=== PATIENT | female | born 1955 | race Caucasian/White ===

== ENCOUNTER 2018-04-11 09:34 | Observation (INO) ==
--- NOTE | 2018-04-11 10:15 | ED ---
HPI General Chief complaint: Skin/Abscess/Foreign Body Stated complaint: Medical Time Seen by Provider: 04/11/18 10:18 Source: patient Mode of arrival: ambulatory Limitations: no limitations History of Present Illness HPI narrative: Patient was bitten by her kitten 2 days ago, she was initiated on clindamycin and Bactrim 2 days ago right away, and despite this aggressive treatment her right first and second digit knuckle area of gotten really inflamed and swollen Related Data Home Medications Medication Instructions Recorded Confirmed paroxetine HCl [Paxil] 20 mg PO DAILY 04/11/18 04/11/18 Previous Rx's Medication Instructions Recorded clindamycin HCl 300 mg PO TID #6 cap 04/12/18 fluconazole [Diflucan] 150 mg PO Q3D #2 tab 04/12/18 ketorolac 10 mg PO Q6H PRN #16 tab 04/12/18 sulfamethoxazole-trimethoprim 1 tab PO BID #4 tab 04/12/18 [Bactrim DS] Allergies Allergy/AdvReac Type Severity Reaction Status Date / Time penicillin G Allergy Severe Rash Verified 04/11/18 09:38 strawberry AdvReac Severe RASH Verified 04/11/18 09:38 Review of Systems ROS: all other systems reviewed are negative PMFSH History History Provided By: Patient Medical History Medical History ACL (anterior cruciate ligament) tear (Acute) Depression (Acute) Ganglion cyst of dorsum of left wrist (Acute) Meniscal injury (Acute) Right knee injury (Acute) Surgical History Surgical History H/O left knee surgery (Acute) History of appendectomy (Acute) S/P ACL surgery (Acute) S/P appy (Acute) S/P rotator cuff repair (Acute) Social History Social History Substance History: No History of Abuse Second Hand Smoke Exposure: No Smoking Status: Former smoker Tobacco Type: Cigarettes Packs Per Day: 1 Cigarettes Per Day: 20.0 How Often Do You Have a Drink Containing Alcohol: Monthly or less Recent Travel in [place] within the Last 8 Weeks: No Recent Out of Country Travel within the Last 8 Weeks: No Exam Narrative Exam Narrative: GENERAL: Well-nourished, well-developed patient in no apparent distress. SKIN: Warm and dry. HEAD: Atraumatic. Normocephalic. EYES: Pupils equal and round. No scleral icterus. No injection or drainage. ENT: No nasal bleeding or discharge. Mucous membranes pink and moist. NECK: Trachea midline. No JVD. CARDIOVASCULAR: Regular rate and rhythm. no rubs or gallops RESPIRATORY: No accessory muscle use. Clear to auscultation. Breath sounds equal bilaterally. GASTROINTESTINAL: Abdomen soft, non-tender, nondistended. No rebound or guarding MUSCULOSKELETAL: Extremities without clubbing, cyanosis, or edema. No obvious deformities. Right second and third MCP region edema on the dorsal aspect, also edema on the palmar aspect as well as puncture bites noted not actively bleeding no streaking, on the palmar aspect of the right hand between first digit and second digit along the first web interspace, there is no involvement of hypo-thenar region. NEUROLOGICAL: Awake and alert. No obvious cranial nerve deficits. Motor grossly within normal limits. Five out of 5 muscle strength in the arms and legs. Normal speech. PSYCHIATRIC: Appropriate mood and affect; insight and judgment normal. Course Initial Documented Vital Signs Temperature 97.7 F 04/11/18 09:36 Pulse Rate 63 04/11/18 09:36 Respiratory Rate 16 04/11/18 09:36 Blood Pressure 158/66 H 04/11/18 09:36 Pulse Oximetry 97 04/11/18 09:36 Last Documented Vital Signs Temperature 98.2 F 04/12/18 12:00 Pulse Rate 62 04/12/18 12:00 Respiratory Rate 20 04/12/18 12:00 Blood Pressure 110/53 L 04/12/18 12:00 Pulse Oximetry 96 04/12/18 12:00 Medical Decision Making [facility] Narrative Medical decision making narrative: Due to the quick progression despite aggressive antibiotic use, the patient will be recommended to stay in the hospital for IV antibiotics and to hopefully avoid any necessary hand surgery. Medical Screen Exam Complete: Yes Emergency Medical Condition: Yes Differential Diagnosis Differential Diagnosis: Cellulitis versus lymphangitis versus abscess Lab Data Result diagrams: 04/11/18 10:40 04/11/18 10:40 Lab Results 04/11/18 04/11/18 04/11/18 Range/Units 10:40 10:40 10:45 WBC 5.8 (4.0-11.0) th/mm3 RBC 4.67 (4.00-5.30) mil/mm3 Hgb 14.4 (11.6-15.3) gm/dL Hct 42.9 (35.0-46.0) % MCV 91.7 (80.0-100.0) fL MCH 30.8 (27.0-34.0) pg MCHC 33.6 (32.0-36.0) % RDW 12.7 (11.6-17.2) % Plt Count 195 (150-450) th/mm3 MPV 7.8 (7.0-11.0) fL Neut % (Auto) 60.5 (16.0-70.0) % Lymph % (Auto) 31.0 (9.0-44.0) % [place] % (Auto) 6.3 (0.0-8.0) % Eos % (Auto) 1.5 (0.0-4.0) % Baso % (Auto) 0.7 (0.0-2.0) % Neut # (Auto) 3.5 (1.8-7.7) th/mm3 Lymph # (Auto) 1.8 (1.0-4.8) th/mm3 [place] # (Auto) 0.4 (0.0-0.9) th/mm3 Eos # (Auto) 0.1 (0.0-0.4) th/mm3 Baso # (Auto) 0.0 (0.0-0.2) th/mm3 WBC Differential . Differential Comment Auto diff final Sodium 141 (136-145) meq/L Potassium 4.2 (3.5-5.1) meq/L Chloride 108 H (98-107) meq/L Carbon Dioxide 24.3 (21.0-32.0) meq/L Anion Gap 9 (5-15) meq/L BUN 19 H (7-18) mg/dL Creatinine 0.72 (0.50-1.00) mg/dL Estimated GFR 82 L (>89) mL/min Random Glucose 92 (74-106) mg/dL Lactic Acid 0.6 (0.4-2.0) mmol/L Calcium 8.7 (8.5-10.1) mg/dL Total Bilirubin 0.5 (0.2-1.0) mg/dL AST 18 (15-37) U/L ALT 25 (10-53) U/L Alkaline Phosphatase 75 (45-117) U/L Total Protein 6.8 (6.4-8.2) g/dL Albumin 3.7 (3.4-5.0) g/dL Imaging Data Radiologist's impression: Hand X-Ray 04/11/18 10:24 CONCLUSION: Mild soft tissue swelling as above. No acute fracture or retained foreign body identified. Discharge Plan Discharge Disposition Patient Disposition: 01 Discharge Home Discharge Condition Condition: Stable Discharge Order Discharge Orders: Discharge Order (Routine); Ordered 04/12/18 Ordered By: Ranulof Ledezma Discharge Details Diagnosis: Cat bite of hand, Cellulitis of hand, right Physicians Team ED Provider: He Mars Primary Care Provider: Jose Pacheco Attending Provider: Sherif Garcia Discharge Interventions Interventions: ED Discharge Assessment Last Done: 04/11/18 15:43 Vital Signs Last Done: 04/11/18 14:00 Status ED Status: Left Department Discharge Information Discharge Date/Time: 04/11/18 15:43
[2018-04-11] MEDS ORDERED: Vancomycin Inj 1,000 MG in Sodium Chlor 0.9% Inj 250 ML IV.SIG STA (10:18)
[2018-04-11] MEDS ORDERED: Aztreonam Inj 2 GM in Sodium Chloride 0.9% Inj 100 ML IV.SIG STA (10:18)
--- NOTE | 2018-04-11 10:56 | XR ---
EXAM DATE: 04/11/2018 10:52 AM EDT AGE/SEX: 62 years / Female INDICATIONS: Right hand pain and redness at MCP 2nd and 3rd digits after multiple cat bites. CLINICAL DATA: This is the patient's initial encounter. Patient reports that signs and symptoms have been present for 2 days and indicates a pain score of 4/10. MEDICAL/SURGICAL HISTORY: None. None. COMPARISON: No prior exams available for comparison. FINDINGS: Bony structures are intact and in normal alignment. Osseous density is normal. Soft tissues demonstr ate mild swelling of the thenar eminence and at the base of the second digit.. No radiopaque foreign bodies seen. CONCLUSION: Mild soft tissue swelling as above. No acute fracture or retained foreign body identified. Electronically signed by: Romeo Jordan MD 04/11/2018 10:54 AM EDT
[2018-04-11 11:19] LABS: Baso % (Auto) 0.7 % (0.0-2.0); Eos # (Auto) 0.1 th/mm3 (0.0-0.4); Eos % (Auto) 1.5 % (0.0-4.0); Hematocrit 42.9 % (35.0-46.0); Hemoglobin 14.4 gm/dL (11.6-15.3); Lymph # (Auto) 1.8 th/mm3 (1.0-4.8); Mean Corpuscular HGB Conc 33.6 % (32.0-36.0); Mean Corpuscular Hemoglobin 30.8 pg (27.0-34.0); Mean Corpuscular Volume 91.7 fL (80.0-100.0); Mean Platelet Volume 7.8 fL (7.0-11.0); Mono # (Auto) 0.4 th/mm3 (0.0-0.9); Mono % (Auto) 6.3 % (0.0-8.0); Neut # (Auto) 3.5 th/mm3 (1.8-7.7); Neut % (Auto) 60.5 % (16.0-70.0); Platelet Count 195 th/mm3 (150-450); Red Blood Count 4.67 mil/mm3 (4.00-5.30); Red Cell Distribution Width 12.7 % (11.6-17.2); White Blood Count 5.8 th/mm3 (4.0-11.0)
[2018-04-11 11:40] LABS: Albumin 3.7 g/dL (3.4-5.0); Anion Gap 9 meq/L (5-15); Aspartate Aminotransferase 18 U/L (15-37); Blood Urea Nitrogen 19 mg/dL (7-18); Calcium 8.7 mg/dL (8.5-10.1); Carbon Dioxide 24.3 meq/L (21.0-32.0); Chloride 108 meq/L (98-107); Glomerular Filtration Rate 82 mL/min (>89); Glucose,Random 92 mg/dL (74-106); Potassium 4.2 meq/L (3.5-5.1); Sodium 141 meq/L (136-145)
[2018-04-11 11:41] LABS: Alanine Aminotransferase 25 U/L (10-53)
[2018-04-11 11:44] LABS: Alkaline Phosphatase 75 U/L (45-117); Total Protein 6.8 g/dL (6.4-8.2)
[2018-04-11] MEDS ORDERED: Tetanus/Diphtheria Toxoid Adult Vaccine Inj 0.5 ML Vial IM ONE (12:17)
[2018-04-11] MEDS ORDERED: [UNRECOGNIZED DRUG - OTHER] IM ONE (12:17)
[2018-04-11] MEDS ORDERED: Bisacodyl 10 MG Supp RECTAL PRN (12:36)
[2018-04-11] MEDS ORDERED: Temazepam 15 MG Capsule PO PRN (12:36)
[2018-04-11] MEDS ORDERED: Acetaminophen 325 MG Tablet PO PRN ×2 (12:43→14:15)
--- NOTE | 2018-04-11 13:12 | P.HPFP ---
History of Present Illness Primary Care Physician: Jose Pacheco MD Chief Complaint: Right hand swelling from cat bite History of Present Illness: 62-year-old female with no past medical history presents for cat bite of right hand with swelling. She was bitten by the cat on the . It is a 2- week-old kitten. She had pain, swelling, redness, and warmth to touch of the hand. The swelling continued so she went to see her primary doctor Jay. He put her on clindamycin 300 mg every 6 hours and Bactrim every 12 hours. She took the medication starting yesterday and took it this morning. Since taking the medication she had experienced some nausea. No diarrhea. No fevers. The swelling continued and so she presented to the ED. Her pain has been minimal and controlled with Tylenol once yesterday. She has never injured this hand before. Her cat and has not been exposed to other animals as far she knows. The cat has not received rabies vaccine yet. The cat has not been acting abnormal just got startled in the dark. She is able to move her hand with full range of motion and denies any numbness or tingling. Patient is unsure of her last tetanus shot. She lives at home with her and has 9 cats total. - Diagnosis (1) Localized swelling on right hand Review of Systems Constitutional: Denies chills, Denies fever(s) Cardiovascular: Denies chest pain Respiratory: Denies shortness of breath Gastrointestinal: Reports nausea, Denies abdominal pain, Denies vomiting Genitourinary: Denies painful urination Musculoskeletal: Denies numbness, Denies tingling Skin/Breast: Denies unusual bruising Neurologic: Denies headache(s) Psychiatric: Denies change in appetite Hematologic/Lymphatic: Denies easy bleeding PMFSH - History History Provided By: Patient - Medical History Medical History: Medical History (Last Updated 04/11/18 @ 12:58 by Rhiannon Tripp MD, R1) ACL (anterior cruciate ligament) tear Depression Meniscal injury Right knee injury - Surgical History Surgical History: Surgical History (Last Updated 04/11/18 @ 12:58 by Rhiannon Tripp MD, R1) H/O left knee surgery History of surgical removal of ganglion cyst S/P ACL surgery S/P appy S/P rotator cuff repair - Tobacco History Smoking Status: Former smoker Tobacco Type: Cigarettes Packs Per Day: 1 - Alcohol History How Often Do You Have a Drink Containing Alcohol: Monthly or less - Substance Use History Substance History: No History of Abuse - Travel History Recent Travel in the [place] Within the Last 8 Weeks: No Recent Travel Out of the Country Within the Last 8 Weeks: No - Immunization History Tetanus Immunization: <5 Years Hx Influenza Vaccine This Season: Yes Medications and Allergies Active Medications: Active Medications Acetaminophen (Tylenol) 325 mg PO Q4H PRN PRN Reason: PAIN 1-10 AND/OR FEVER >101F Al Hydroxide/Mg Hydroxide (Milk Of Magnesia Liq) 30 ml PO Q12H PRN PRN Reason: Mild Constipation Bisacodyl (Dulcolax Supp) 10 mg RECTAL DAILY PRN PRN Reason: SEVERE CONSITIPATION Ceftriaxone Sodium 1,000 mg/ (Sodium Chloride) 100 mls @ 200 mls/hr IV.SIG Q12H BOB Clindamycin/Sodium Chloride (Cleocin 600 Mg/Ns Premix) 600 mg in 50 mls @ 100 mls/hr IV.SIG Q6H BOB Ondansetron HCl (Zofran Odt) 4 mg PO Q6H PRN PRN Reason: MILD NAUSEA Paroxetine HCl (Paxil) 20 mg PO DAILY BOB Senna/Docusate Sodium (Lauren-Colace) 1 tab PO BID BOB Sennosides (Senokot) 17.2 mg PO Q12H PRN PRN Reason: Moderate Constipation Temazepam (Restoril) 15 mg PO HS PRN PRN Reason: INSOMNIA Allergies Allergy/AdvReac Type Severity Reaction Status Date / Time penicillin G Allergy Severe Rash Verified 04/11/18 09:38 strawberry AdvReac Severe RASH Verified 04/11/18 09:38 Home Medications Medication Instructions Recorded Confirmed Type paroxetine HCl [Paxil] 20 mg PO DAILY 04/11/18 04/11/18 History Exam Vital signs: Vital Signs 04/11/18 09:36 Temperature 97.7 F Pulse Rate 63 Respiratory Rate 16 Blood Pressure 158/66 H Pulse Oximetry 97 Intake & Output 04/10/18 04/11/18 04/11/18 18:59 06:59 18:59 Weight 74.843 kg - Constitutional no acute distress - Routine HEENT Exam Head: Present: normocephalic, atraumatic - Routine Neck Exam Present: supple, full ROM - Detailed Respiratory Exam bilateral Present: clear to auscultation. Absent: rales, rhonchi, wheezes - Routine Cardiovascular Exam Present: RRR, S1, S2. Absent: murmur - Routine Abdominal Exam Present: soft. Absent: tenderness, distended - Detailed Upper Extremity Exam Comments: Left hand swelling especially over the thenar palm and dorsum of hand into the first and second digits. Erythematous and slightly warm to touch. Swelling does not extend into wrist. Full range of motion. Tenderness to palpation, ROM , and with strength exercises. Sensation intact. 4 out of 5 graduate rn strength and abduction compared to 5 out of 5 strength of right hand. Puncture wound between thumb and first digit. Small laceration on left forearm no surrounding erythema. - Routine Neurological Exam Present: oriented X3 Results - Labs Result diagrams: 04/11/18 10:40 04/11/18 10:40 Abnormal lab results 04/11/18 Range/Units 10:40 Chloride 108 H (98-107) meq/L BUN 19 H (7-18) mg/dL Estimated GFR 82 L (>89) mL/min Short CBC 04/11/18 Range/Units 10:40 WBC 5.8 (4.0-11.0) th/mm3 Hgb 14.4 (11.6-15.3) gm/dL Hct 42.9 (35.0-46.0) % Plt Count 195 (150-450) th/mm3 BMP 04/11/18 10:40 Sodium 141 Potassium 4.2 Chloride 108 H Carbon Dioxide 24.3 BUN 19 H Creatinine 0.72 Calcium 8.7 Liver Function 04/11/18 Range/Units 10:40 Total Bilirubin 0.5 (0.2-1.0) mg/dL AST 18 (15-37) U/L ALT 25 (10-53) U/L Alkaline Phosphatase 75 (45-117) U/L Albumin 3.7 (3.4-5.0) g/dL - Imaging Impressions Hand X-Ray 04/11/18 10:24 CONCLUSION: Mild soft tissue swelling as above. No acute fracture or retained foreign body identified. Caprini VTE Risk Assessment Caprini VTE Risk Assessment: No/Low Risk (score <= 1) Caprini Risk Assessment Model: Point Value = 1 Point Value = 2 Point Value = 3 Point Value = 5 Age 41-60 Minor surgery BMI > 25 kg/m2 Swollen legs Varicose veins or History of unexplained or recurrent spontaneous Oral contraceptives or hormone replacement Sepsis (< 1 month) Serious lung disease, including pneumonia (< 1 month) Abnormal pulmonary function Acute myocardial infarction Congestive heart failure (< 1 month) History of inflammatory bowel disease Medical patient at bed rest Age 61-74 Arthroscopic surgery Major open surgery (> 45 min) Laparoscopic surgery (> 45 min) Malignancy Confined to bed (> 72 hours) Immobilizing plaster cast Central venous access Age >= 75 History of VTE Family history of VTE Factor V Leiden Prothrombin [id number] Lupus anticoagulant Anticardiolipin antibodies Elevated serum homocysteine Heparin-induced thrombocytopenia Other congenital or acquired thrombophilia Stroke (< 1 month) Elective arthroplasty Hip, pelvis, or leg fracture Acute spinal cord injury (< 1 month) Prophylaxis Regimen: Total Risk Factor Score Risk Level Prophylaxis Regimen 0-1 Low Early ambulation 2 Moderate Order ONE of the following: *Sequential Compression Device (SCD) *Heparin 5000 units SQ BID 3-4 Higher Order ONE of the following medications: *Heparin 5000 units SQ TID *Enoxaparin/Lovenox 40 mg SQ daily (WT < 150 kg, CrCl > 30 mL/min) *Enoxaparin/Lovenox 30 mg SQ daily (WT < 150 kg, CrCl > 10-29 mL/min) *Enoxaparin/Lovenox 30 mg SQ BID (WT < 150 kg, CrCl > 30 mL/min) AND/OR *Sequential Compression Device (SCD) 5 or more Highest Order ONE of the following medications: *Heparin 5000 units SQ TID (Preferred with Epidurals) *Enoxaparin/Lovenox 40 mg SQ daily (WT < 150 kg, CrCl > 30 mL/min) *Enoxaparin/Lovenox 30 mg SQ daily (WT < 150 kg, CrCl > 10-29 mL/min) *Enoxaparin/Lovenox 30 mg SQ BID (WT < 150 kg, CrCl > 30 mL/min) AND *Sequential Compression Device (SCD) Assessment and Plan - Assessment (1) Localized swelling on right hand Code(s): R22.31 - Localized swelling, mass and lump, right upper limb Status: Acute Plan: 62-year-old female presents after cat bite to right hand with swelling and erythema. Initiated outpatient management cellulitis treatment with Bactrim and clindamycin with no improvement. DDX cellulitis, tendon synovitis, osteomyelitis. In ED given aztreonam. Low suspicion for tendon synovitis given no specific tenderness over the course of the flexor sheath and no flexion of the fingers at rest. Most likely cellulitis. -Admit to observation for IV antibiotics -R hand x-ray: Bony structures are intact and in normal alignment. Osseous density is normal. Soft tissues demonstrate mild swelling of the thenar eminence and at the base of the second digit.. No radiopaque foreign bodies seen. -tetanus -initial rabies tx -Tylenol alternate with Tramadol as needed for pain -Zofran as needed nausea -Clindamycin IV 600 every 6 hours and ceftriaxone 1 g every 12 hours -BCX -home paxil
[2018-04-11] MEDS ORDERED: [UNRECOGNIZED DRUG - OTHER] IM ONE (13:30)
[2018-04-11] MEDS ORDERED: Ketorolac 10 MG Tablet PO PRN (13:38)
[2018-04-11] MEDS: Clindamycin 600 mg/NS Premix 600 MG/50 ML PIGGYBACK IV.SIG SCH ×2 (16:44→17:47)
--- NOTE | 2018-04-11 20:03 | P.PNFP ---
Subjective Interval history: Attending note: Very pleasant 62-year-old employee of [employer] with an unremarkable past medical history presents with a history of 2 days ago of having bitten by a kitten that she had obtained from a local retail store. The bite occurred while she was playing with a kitchen and thought that the kitten "startled". Bit her on the medial aspect of the right hand between the first and second digit dorsally. Patient consulted a hospital physician who recommended oral clindamycin and Bactrim which was started promptly however patient has had increased redness and swelling some discomfort on flexion and extension of the right hand. Patient has received tetanus immunization as well as a rabies injection. Resting comfortably. Please refer to the resident history and physical for complete discussion of past medical history, family history, social history and review of systems. Results - Labs Result diagrams: 04/11/18 10:40 04/11/18 10:40 Abnormal lab results 04/11/18 Range/Units 10:40 Chloride 108 H (98-107) meq/L BUN 19 H (7-18) mg/dL Estimated GFR 82 L (>89) mL/min Short CBC 04/11/18 Range/Units 10:40 WBC 5.8 (4.0-11.0) th/mm3 Hgb 14.4 (11.6-15.3) gm/dL Hct 42.9 (35.0-46.0) % Plt Count 195 (150-450) th/mm3 BMP 04/11/18 10:40 Sodium 141 Potassium 4.2 Chloride 108 H Carbon Dioxide 24.3 BUN 19 H Creatinine 0.72 Calcium 8.7 Liver Function 04/11/18 Range/Units 10:40 Total Bilirubin 0.5 (0.2-1.0) mg/dL AST 18 (15-37) U/L ALT 25 (10-53) U/L Alkaline Phosphatase 75 (45-117) U/L Albumin 3.7 (3.4-5.0) g/dL - Imaging Impressions Hand X-Ray 04/11/18 10:24 CONCLUSION: Mild soft tissue swelling as above. No acute fracture or retained foreign body identified. Physical Exam Vital signs: Vital Signs 04/11/18 09:36 04/11/18 13:42 04/11/18 14:00 Temperature 97.7 F Pulse Rate 63 57 L Respiratory Rate 16 17 53 H Blood Pressure 158/66 H 121/61 Pulse Oximetry 97 100 04/11/18 15:47 Temperature 97.9 F Pulse Rate 54 L Respiratory Rate 20 Blood Pressure 134/61 Pulse Oximetry 97 Intake & Output 04/11/18 04/11/18 04/12/18 06:59 18:59 06:59 Intake Total 450 / 450 Balance 450 / 450 Weight 76.6 kg Intake: IV 450 / 450 Vancomycin Inj 1,000 MG In NS 250 / 250 Inj 250 ML @ 250 mls/hr IV.SIG STAT STA Rx#:[id number] Rocephin Inj 1,000 MG In NS Inj 100 / 100 100 ML @ 200 mls/hr IV.SIG Q12H BOB Rx#:[id number] Other: Weight On Admission 76.6 kg Narrative: Vital signs stable. Afebrile. General appearance: Very healthy middle-aged woman who is conversive, accompanied by visitors and in no acute distress. Pertinent examination: Right upper extremity, no tenderness in the axilla, epitrochlear area, no lymphangitic streaks. There is soft tissue swelling and the area of a wound that is erythematous and the right medial dorsal webspace between the thumb and index finger. There is associated soft tissue swelling dorsally. Patient able to flex and extend her digits. Limited by the swelling. Assessment and Plan - Assessment (1) Localized swelling on right hand Code(s): R22.31 - Localized swelling, mass and lump, right upper limb Status: Acute Plan: 62-year-old female presents after cat bite to right hand with swelling and erythema. Initiated outpatient management cellulitis treatment with Bactrim and clindamycin with no improvement. DDX cellulitis, tendon synovitis, osteomyelitis. In ED given aztreonam. Low suspicion for tendon synovitis given no specific tenderness over the course of the flexor sheath and no flexion of the fingers at rest. Most likely cellulitis. -Admit to observation for IV antibiotics -R hand x-ray: Bony structures are intact and in normal alignment. Osseous density is normal. Soft tissues demonstrate mild swelling of the thenar eminence and at the base of the second digit.. No radiopaque foreign bodies seen. -tetanus -initial rabies tx -Tylenol alternate with Tramadol as needed for pain -Zofran as needed nausea -Clindamycin IV 600 every 6 hours and ceftriaxone 1 g every 12 hours -BCX -home paxil - Assessment and Plan Clinical assessment kitten bite and a very healthy person, currently on IV antibiotics and because the cat was not old enough to receive rabies vaccine a prophylactic rabies regimen has started. Tetanus immunization. Antibiotics as ordered by the resident team. Agree with resident evaluation and orders as recorded. Sherif Garcia MD 04/11/2018.
[2018-04-11] MEDS: Senna/Docusate Sodium 8.6/50 MG Tablet PO SCH (22:01)
[2018-04-12] MEDS: Clindamycin 600 mg/NS Premix 600 MG/50 ML PIGGYBACK IV.SIG SCH ×3 (00:32→12:52)
[2018-04-12] MEDS: Senna/Docusate Sodium 8.6/50 MG Tablet PO SCH (08:39)
--- NOTE | 2018-04-12 10:23 | P.PNFP ---
Subjective Interval history: Patient was seen and examined this morning. She is feeling much better this morning. Her hand swelling has improved. She denies fevers, chills, nausea, vomiting, headaches, chest pain, shortness of breath, abdominal pain, lower extremity edema. <Hermelinda Fang - 04/12/18 11:20> Results - Labs Result diagrams: 04/11/18 10:40 04/11/18 10:40 <Sherif Garcia - 04/12/18 15:19> Abnormal lab results 04/11/18 Range/Units 10:40 Chloride 108 H (98-107) meq/L BUN 19 H (7-18) mg/dL Estimated GFR 82 L (>89) mL/min Short CBC 04/11/18 Range/Units 10:40 WBC 5.8 (4.0-11.0) th/mm3 Hgb 14.4 (11.6-15.3) gm/dL Hct 42.9 (35.0-46.0) % Plt Count 195 (150-450) th/mm3 BMP 04/11/18 10:40 Sodium 141 Potassium 4.2 Chloride 108 H Carbon Dioxide 24.3 BUN 19 H Creatinine 0.72 Calcium 8.7 Liver Function 04/11/18 Range/Units 10:40 Total Bilirubin 0.5 (0.2-1.0) mg/dL AST 18 (15-37) U/L ALT 25 (10-53) U/L Alkaline Phosphatase 75 (45-117) U/L Albumin 3.7 (3.4-5.0) g/dL <Hermelinda Fang - 04/12/18 10:23> - Imaging Impressions Hand X-Ray 04/11/18 10:24 CONCLUSION: Mild soft tissue swelling as above. No acute fracture or retained foreign body identified. <Hermelinda Fang - 04/12/18 10:23> Physical Exam Vital signs: Vital Signs 04/11/18 15:47 04/11/18 20:00 04/12/18 00:00 Temperature 97.9 F 98.1 F 98 F Pulse Rate 54 L 57 L 59 L Respiratory Rate 20 16 16 Blood Pressure 134/61 120/60 118/55 L Pulse Oximetry 97 95 96 04/12/18 04:00 04/12/18 08:00 08/18/18 12:00 Temperature 97.4 F L 97.9 F 98.2 F Pulse Rate 58 L 63 62 Respiratory Rate 16 20 20 Blood Pressure 119/57 L 114/69 110/53 L Pulse Oximetry 93 L 96 96 Intake & Output 04/11/18 04/12/18 04/12/18 18:59 06:59 18:59 Intake Total 450 / 450 490 / 490 Output Total 1000 / 1000 Balance 450 / 450 -510 / -510 Weight 76.6 kg 76.4 kg Intake: IV 450 / 450 250 / 250 Cleocin 600 mg/NS Premix 600 mg 150 / 150 In 50 ml @ 100 mls/hr IV.SIG Q6H BOB Rx#:[id number] Vancomycin Inj 1,000 MG In NS 250 / 250 Inj 250 ML @ 250 mls/hr IV.SIG STAT STA Rx#:[id number] Rocephin Inj 1,000 MG In NS Inj 100 / 100 100 / 100 100 ML @ 200 mls/hr IV.SIG Q12H BOB Rx#:[id number] Oral 240 / 240 Output: Urine 1000 / 1000 Other: # Bowel Movements 0 Weight On Admission 76.6 kg <Sherif Garcia E - 04/12/18 15:19> Vital Signs 04/11/18 13:42 04/11/18 14:00 04/11/18 15:47 Temperature 97.9 F Pulse Rate 57 L 54 L Respiratory Rate 17 53 H 20 Blood Pressure 121/61 134/61 Pulse Oximetry 100 97 04/11/18 20:00 04/12/18 00:00 04/12/18 04:00 Temperature 98.1 F 98 F 97.4 F L Pulse Rate 57 L 59 L 58 L Respiratory Rate 16 16 16 Blood Pressure 120/60 118/55 L 119/57 L Pulse Oximetry 95 96 93 L 04/12/18 08:00 Temperature 97.9 F Pulse Rate 63 Respiratory Rate 20 Blood Pressure 114/69 Pulse Oximetry 96 Intake & Output 04/11/18 04/12/18 04/12/18 18:59 06:59 18:59 Intake Total 450 / 450 490 / 490 Output Total 1000 / 1000 Balance 450 / 450 -510 / -510 Weight 76.6 kg 76.4 kg Intake: IV 450 / 450 250 / 250 Cleocin 600 mg/NS Premix 600 mg 150 / 150 In 50 ml @ 100 mls/hr IV.SIG Q6H BOB Rx#:[id number] Vancomycin Inj 1,000 MG In NS 250 / 250 Inj 250 ML @ 250 mls/hr IV.SIG STAT STA Rx#:[id number] Rocephin Inj 1,000 MG In NS Inj 100 / 100 100 / 100 100 ML @ 200 mls/hr IV.SIG Q12H BOB Rx#:[id number] Oral 240 / 240 Output: Urine 1000 / 1000 Other: # Bowel Movements 0 Weight On Admission 76.6 kg <Hermelinda Fang L - 04/12/18 10:23> Narrative: VS reviewed and wnl. GENERAL: Well-nourished, well-developed patient in no acute distress. SKIN: Warm and dry. HAND: Right upper extremity showing great improvement in swelling, almost fully resolved. The skin is not significantly erythematous. epitrochlear area, no lymphangitic streaks. There is soft tissue swelling and the area of a wound that is erythematous and the right medial dorsal webspace between the thumb and index finger. There is associated soft tissue swelling dorsally. Patient able to flex and extend her digits with almost full strength. Lesions of cat bites scabbed with evidence of normal healing. RESPIRATORY: No increased work of breathing. No accessory muscle use. GASTROINTESTINAL: Abdomen nondistended. MUSCULOSKELETAL: No cyanosis or edema. NEURO: No obvious focal neurologic deficits. Moves all extremities well. Normal gait. <Hermelinda Fang L - 04/12/18 11:20> Assessment and Plan - Assessment (1) Cat bite of hand Code(s): S61.459A - Open bite of unspecified hand, initial encounter; W55.01XA - Bitten by cat, initial encounter Status: Acute (2) Cellulitis of hand, right Code(s): L03.113 - Cellulitis of right upper limb Status: Acute <Sherif Garcia E - 04/12/18 15:19> (1) Cat bite of hand Code(s): S61.459A - Open bite of unspecified hand, initial encounter; W55.01XA - Bitten by cat, initial encounter Status: Acute Plan: Stable for discharge today. Will discharge with Bactrim DS BID and Clindamycin 300mg TID to complete a total 10 day course of antibiotics. She already has scripts for these at home and thus discharge scripts will cover the rest of the 10 day course. Diflucan 150mg tabs x 2 prescribed if needed for yeast infection related to antibiotic administration and patient states she is prone to these. Patient to f/u with PCP in the community or at the [facility] within 1-2 weeks. *Rabies vaccination x 1 administered. It is noted that post-exposure vaccination series per CDC includes Immune globulin on dose 1 and doses at days 3, 7, and 10. Will determine course of action for this and discuss with patient. This will not hold up discharge. She will be following up with her PCP and can continue course of vaccinations as outpatient. Of note, cat bite from kitten is low risk exposure, low suspicion for Rabies. Clinical Course: 62-year-old female presented 04/11 after cat bite to right hand with swelling and erythema. The cat was purchased at a pet store and Initiated outpatient management cellulitis treatment with Bactrim and clindamycin with no improvement. In ED she was given aztreonam. Low suspicion for tendon synovitis given no specific tenderness over the course of the flexor sheath and no flexion of the fingers at rest. Treatment for cellulitis has led to overnight improvement and patient is stable for discharge home today with continued PO antibiotics. -Admited to observation for IV antibiotics -R hand x-ray: soft tissue swelling only -Tetanus booster administered -Rabies vaccination x 1 administered on 04/11 -Tylenol and Toradol for pain, to continue both PO at discharge (Toradol no longer than 5 days) -Clindamycin IV 600 every 6 hours and ceftriaxone 1 g every 12 hours while inpatient, completed 24hrs -BCx negative to date, low suspicion for bacteremia (2) Cellulitis of hand, right Code(s): L03.113 - Cellulitis of right upper limb Status: Acute Plan: as above <Hermelinda Fang - 04/12/18 12:08> - Assessment and Plan Attending note: Patient seen and evaluated with resident team today. Clinically much improved right hand with decreased swelling and redness. Has increased ROM of hand and digits. Case discussed with resident team and agree with plans for velia Garcia MD 04/12/18. <Sherif Garcia - 04/12/18 15:19> Discussed Condition With: Dr. Sherif Garcia, attending Dr. Ranulfo Ledezma, PGY2 Dr. Rhiannon Tripp, PGY1 <Hermelinda Fang - 04/12/18 11:20> <Hermelinda Fang L - Last Filed: 04/12/18 12:08> (1) Cat bite of hand Qualifiers: Encounter type: subsequent encounter Laterality: right Qualified Code(s): S61.451D - Open bite of right hand, subsequent encounter; W55.01XD - Bitten by cat, subsequent encounter <Sherif Garcia E - Last Filed: 04/12/18 15:19> (1) Cat bite of hand Qualifiers: Encounter type: subsequent encounter Laterality: right Qualified Code(s): S61.451D - Open bite of right hand, subsequent encounter; W55.01XD - Bitten by cat, subsequent encounter <Hermelinda Fang L - Last Filed: 04/12/18 12:08> (1) Cat bite of hand Qualifiers: Encounter type: subsequent encounter Laterality: right Qualified Code(s): S61.451D - Open bite of right hand, subsequent encounter; W55.01XD - Bitten by cat, subsequent encounter <Sherif Garcia E - Last Filed: 04/12/18 15:19> (1) Cat bite of hand Qualifiers: Encounter type: subsequent encounter Laterality: right Qualified Code(s): S61.451D - Open bite of right hand, subsequent encounter; W55.01XD - Bitten by cat, subsequent encounter
== END 2018-04-12 14:33 | disposition home or self-care (01) ==
LOC: N04 09:34 → NEPC 09:34 → NEDA 09:34 → N04 15:58
PROVIDERS: ADMIT Family Medicine; ATTEND Family Medicine